=== PATIENT | male | born 1965 | race Caucasian/White ===

== ENCOUNTER → 2021-06-10 | Outpatient (CLI) | payer OTHER ==
[2021-06-11 15:14] LABS: ALDOLASE 3.6 U/L (3.3-10.3)
== END ==
LOC: LAB 12:44
PROVIDERS: Internal Medicine
DX: D89.89 Other specified disorders involving the immune mechanism, not elsewhere classified (principal); M25.50 Pain in unspecified joint; R76.8 Other specified abnormal immunological findings in serum; G72.9 Myopathy, unspecified; G25.3 Myoclonus; R79.82 Elevated C-reactive protein (CRP)
CPT/HCPCS: 36415; 82085; 82550; 82668; 83516; 83615; 83874; 85652; 86140; 86235